=== PATIENT | female | born 1970 | race Caucasian/White ===

== ENCOUNTER 2021-03-03 00:25 | Outpatient (CLI) | payer BC, SELFPAY ==
--- NOTE | 2021-03-03 | DI.CT_ITS ---
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 TECHNIQUE: Imaging Protocol: Axial CT angiography was performed with multi-slice acquisition and mu lti-planar and/or 3D reconstructions. CONTRAST MATERIAL: Intravenous: Omnipaque 350 Contrast volume:structured data in ml COMPARISON: No exams were available for comparison FINDINGS: Nasopharynx: Unremarkable. Oropharynx: Asymmetric left tonsillar region noted. Hypopharynx: Uvula and valleculae appear unremarkable as do the aryepiglottic folds. No evidence of r etropharyngeal abscess. Larynx: Vocal cords appear unremarkable. Subglottic airway appears unremarkable. Thyroid gland: Normal size. Small cyst or nodule noted in the lateral aspect of the left lobe. Measur es approximately 4x 5 millimeters. Salivary glands: Both parotid glands appear unremarkable. Both submandibular glands appear unremarkab le. Lymph nodes: There are pathologic appearing lymph nodes in left side of the neck. These are internall y hypodense and are both anterior and medial to the ipsilateral left sternocleidomastoid muscle. The largest these measures 2.5 cm AP by 2 cm wide by 0.7 cm craniocaudal. There is no obvious pathologic adenopathy on the opposite-right side of the neck. Visualized lung apices: No nodules Osseous: No osseous lesions. Other: Incidentally noted is a focal area of mucosal thickening in the medial wall of the left maxill radha sinus measuring 8 x 5 millimeters. This is probably a post inflammatory retention cyst or polyp. No associated fluid level. No bone dehiscence. The opposite-right maxillary sinus is clear as are the sphenoid and for Sherman is frontal sinuses and ethmoidal air cells. Mastoid air cells are also aerate d. . IMPRESSION: 1. Multiple abnormal enlarged and internally hypodense left neck lymph nodes, as described above. The se pathologic appearing lymph nodes are most probably related to the asymmetry in left side of the or opharynx-tonsil region. 2. No abnormal adenopathy in the right-side of the neck. 3. Other findings as above. RADIATION DOSE DELIVERED: 368.27mGy.cm Total DLP DATA REPOSITORY: All CT scans at this facility are submitted to the National Radiology Data Registry (NRDR) Dose Index Registry (DIR) with the [employer] ([employer]). RADIATION OPTIMIZATION: All CT scans at this facility use at least one of these dose optimization te chniques: automated exposure control; mA and/or kV adjustment per patient size (includes targeted exa ms where dose is matched to clinical indication); or iterative reconstruction.
[2021-03-03 10:47] LABS: CREATININE 0.7 mg/dL (0.55-1.02)
[2021-03-03] MEDS: Omnipaque 350 MG/ML 100 ML BTL IJ (10:58)
[2021-03-03] MEDS: Normal Saline Flush 10 ML SYR IVP (11:00)
== END 2021-03-03 00:45 ==
PROVIDERS: Visit Provider Preventive Medicine Undersea and Hyperbaric Medicine
DX: C09.9 Malignant neoplasm of tonsil, unspecified (principal); R59.0 Localized enlarged lymph nodes; E04.1 Nontoxic single thyroid nodule; J32.0 Chronic maxillary sinusitis; Z01.812 Encounter for preprocedural laboratory examination
CPT/HCPCS: 70491; 82565; J3490

== ENCOUNTER 2021-04-16 03:40 | Outpatient (RCR) | payer BC, SELFPAY ==
[2021-03-26 12:48] LABS: Abs Immature Grans 0.02 10^3/uL (0.0-0.06); Absolute Basophil Count 0.03 10^3/uL (0.0-0.2); Absolute Monocyte Count 0.28 10^3/uL (0.1-0.8); Absolute Neutrophil Count 3.82 10^3/uL (1.2-6.7); Basophils % 0.6; Eosinophils % 3.9; HCT 39.9 % (36.0-46.0); HGB 12.7 g/dL (11.2-15.7); Immature Grans % 0.4; Lymphocytes % 15.5; MCH 28.3 pg (27.0-33.0); MCHC 31.8 % (32.0-36.0); MCV 88.9 fL (80-95); MPV 10.6 fL (8.0-11.0); Monocytes % 5.4; Neutrophils % 74.2; Nucleated RBC 0 %; Platelet Count 221 10^3/uL (130-400); RBC 4.49 10^6/uL (3.93-5.22); RDW 13.3 % (11.7-14.6); RDW-SD 43.1 fL; WBC 5.15 10^3/uL (4.4-10.8)
[2021-03-26 13:12] LABS: ALT 27 U/L (14-59); AST 13 U/L (15-37); Albumin 4.2 g/dL (3.4-5.0); Alkaline Phosphatase 102 U/L (46-116); Anion Gap 9.7 mmol/L (3-11); BUN 19 mg/dL (7-18); Bilirubin, Total 0.5 mg/dL (0.2-1.0); CO2 30.3 mmol/L (21.0-32.0); CREATININE 0.7 mg/dL (0.55-1.02); Calcium 9.6 mg/dL (8.5-10.1); Chloride 100 mmol/L (98-107); Ferritin 76 ng/mL (8-252); Glucose 100 mg/dL (74-106); Potassium 3.7 mmol/L (3.5-5.1); Sodium 140 mmol/L (136-145); Total Protein 8.4 g/dL (6.4-8.2)
[2021-03-26 13:24] LABS: Iron 89 ug/dL (50-170); Total Iron Binding Capacity 383 ug/dL (250-450); Transferrin Sat 23 % (15-50)
[2021-03-26 22:01] LABS: CEA 2.4 ng/mL (See Note)
[2021-03-30 17:05] LABS: DPYD Phenotype Normal metabolizer
[2021-04-16] MEDS: Heparin 500 UNITS/5 ML SYRINGE (13:59)
[2021-04-16] MEDS: Normal Saline Flush 10 ML SYR IVP (13:59)
[2021-04-16 14:12] LABS: Abs Immature Grans 0.01 10^3/uL (0.0-0.06); Absolute Basophil Count 0.03 10^3/uL (0.0-0.2); Absolute Eosinophil Count 0.29 10^3/uL (0.0-0.7); Absolute Lymphocyte Count 0.96 10^3/uL (1.2-3.4); Absolute Monocyte Count 0.44 10^3/uL (0.1-0.8); Absolute Neutrophil Count 3.46 10^3/uL (1.2-6.7); Basophils % 0.6; Eosinophils % 5.6; HCT 37.2 % (36.0-46.0); HGB 11.9 g/dL (11.2-15.7); Immature Grans % 0.2; Lymphocytes % 18.5; MCH 27.8 pg (27.0-33.0); MCV 86.9 fL (80-95); MPV 9.7 fL (8.0-11.0); Monocytes % 8.5; Neutrophils % 66.6; Nucleated RBC 0 %; Platelet Count 255 10^3/uL (130-400); RBC 4.28 10^6/uL (3.93-5.22); RDW 13.9 % (11.7-14.6); RDW-SD 43.4 fL; WBC 5.19 10^3/uL (4.4-10.8)
[2021-04-16 14:26] LABS: ALT 27 U/L (14-59); AST 16 U/L (15-37); Albumin 3.9 g/dL (3.4-5.0); Alkaline Phosphatase 106 U/L (46-116); Anion Gap 8.2 mmol/L (3-11); BUN 20 mg/dL (7-18); Bilirubin, Total 0.3 mg/dL (0.2-1.0); CO2 27.8 mmol/L (21.0-32.0); CREATININE 0.7 mg/dL (0.55-1.02); Calcium 9.1 mg/dL (8.5-10.1); Chloride 104 mmol/L (98-107); Glucose 107 mg/dL (74-106); Potassium 3.9 mmol/L (3.5-5.1); Sodium 140 mmol/L (136-145)
[2021-04-16 23:06] LABS: CEA 4.9 ng/mL (See Note)
== END 2021-04-19 23:59 | disposition home or self-care (01) ==
LOC: INF 03:40
PROVIDERS: Visit Provider Internal Medicine Hematology & Oncology
DX: C20 Malignant neoplasm of rectum (principal); Z45.2 Encounter for adjustment and management of vascular access device
CPT/HCPCS: 36415; 36591; 80053; 81232; 99195; 82378; 82728; 83540; 83550; 85025

== ENCOUNTER 2021-05-14 03:24 | Outpatient (RCR) | payer BC, SELFPAY ==
[2021-04-30] MEDS: Normal Saline Flush 10 ML SYR IVP (12:31)
[2021-04-30] MEDS: Heparin 500 UNITS/5 ML SYRINGE (12:31)
[2021-04-30 12:35] LABS: Abs Immature Grans 0.01 10^3/uL (0.0-0.06); Absolute Basophil Count 0.04 10^3/uL (0.0-0.2); Absolute Eosinophil Count 0.14 10^3/uL (0.0-0.7); Absolute Lymphocyte Count 1.05 10^3/uL (1.2-3.4); Absolute Monocyte Count 0.57 10^3/uL (0.1-0.8); Absolute Neutrophil Count 3.42 10^3/uL (1.2-6.7); Basophils % 0.8; Eosinophils % 2.7; HCT 36.2 % (36.0-46.0); HGB 11.7 g/dL (11.2-15.7); Immature Grans % 0.2; Lymphocytes % 20.1; MCH 28.1 pg (27.0-33.0); MCHC 32.3 % (32.0-36.0); MCV 86.8 fL (80-95); MPV 9.6 fL (8.0-11.0); Monocytes % 10.9; Neutrophils % 65.3; Nucleated RBC 0 %; Platelet Count 210 10^3/uL (130-400); RBC 4.17 10^6/uL (3.93-5.22); RDW 14.3 % (11.7-14.6); RDW-SD 43.9 fL; WBC 5.23 10^3/uL (4.4-10.8)
[2021-04-30 12:48] LABS: ALT 32 U/L (14-59); AST 17 U/L (15-37); Albumin 3.8 g/dL (3.4-5.0); Alkaline Phosphatase 113 U/L (46-116); Anion Gap 6.3 mmol/L (3-11); BUN 20 mg/dL (7-18); Bilirubin, Total 0.4 mg/dL (0.2-1.0); CO2 28.7 mmol/L (21.0-32.0); CREATININE 0.8 mg/dL (0.55-1.02); Calcium 9.3 mg/dL (8.5-10.1); Chloride 105 mmol/L (98-107); Glucose 124 mg/dL (74-106); Potassium 3.9 mmol/L (3.5-5.1); Sodium 140 mmol/L (136-145); Total Protein 7.8 g/dL (6.4-8.2)
[2021-05-14 14:16] LABS: Abs Immature Grans 0.05 10^3/uL (0.0-0.06); Absolute Basophil Count 0.05 10^3/uL (0.0-0.2); Absolute Eosinophil Count 0.11 10^3/uL (0.0-0.7); Absolute Lymphocyte Count 1.28 10^3/uL (1.2-3.4); Absolute Monocyte Count 0.61 10^3/uL (0.1-0.8); Absolute Neutrophil Count 3.35 10^3/uL (1.2-6.7); Basophils % 0.9; HCT 35.1 % (36.0-46.0); HGB 11.4 g/dL (11.2-15.7); Immature Grans % 0.9; Lymphocytes % 23.5; MCH 28.4 pg (27.0-33.0); MCHC 32.5 % (32.0-36.0); MCV 87.3 fL (80-95); MPV 9.7 fL (8.0-11.0); Monocytes % 11.2; Neutrophils % 61.5; Nucleated RBC 0 %; Platelet Count 178 10^3/uL (130-400); RBC 4.02 10^6/uL (3.93-5.22); RDW-SD 46.5 fL; WBC 5.45 10^3/uL (4.4-10.8)
[2021-05-14] MEDS: Normal Saline Flush 10 ML SYR IVP (14:17)
[2021-05-14] MEDS: Heparin 500 UNITS/5 ML SYRINGE IV (14:17)
[2021-05-14 14:29] LABS: ALT 28 U/L (14-59); AST 16 U/L (15-37); Albumin 3.8 g/dL (3.4-5.0); Alkaline Phosphatase 110 U/L (46-116); Anion Gap 9.8 mmol/L (3-11); BUN 21 mg/dL (7-18); Bilirubin, Total 0.3 mg/dL (0.2-1.0); CO2 26.2 mmol/L (21.0-32.0); CREATININE 0.7 mg/dL (0.55-1.02); Calcium 9.3 mg/dL (8.5-10.1); Chloride 104 mmol/L (98-107); Glucose 133 mg/dL (74-106); Potassium 3.9 mmol/L (3.5-5.1); Sodium 140 mmol/L (136-145); Total Protein 7.6 g/dL (6.4-8.2)
== END 2021-05-17 23:59 | disposition home or self-care (01) ==
LOC: INF 03:24
PROVIDERS: Visit Provider Internal Medicine Hematology & Oncology
DX: Z45.2 Encounter for adjustment and management of vascular access device (principal); C20 Malignant neoplasm of rectum
CPT/HCPCS: 36591; 80053; 85025

== ENCOUNTER 2021-06-06 03:20 | Outpatient (RCR) | payer BC, SELFPAY ==
[2021-06-04] MEDS: Normal Saline Flush 10 ML SYR IVP (07:43)
[2021-06-04 08:04] LABS: Abs Immature Grans 0.02 10^3/uL (0.0-0.06); Absolute Basophil Count 0.02 10^3/uL (0.0-0.2); Absolute Eosinophil Count 0.11 10^3/uL (0.0-0.7); Absolute Lymphocyte Count 0.87 10^3/uL (1.2-3.4); Absolute Monocyte Count 0.55 10^3/uL (0.1-0.8); Absolute Neutrophil Count 1.97 10^3/uL (1.2-6.7); Basophils % 0.6; Eosinophils % 3.1; HGB 12.1 g/dL (11.2-15.7); Immature Grans % 0.6; Lymphocytes % 24.6; MCH 29.2 pg (27.0-33.0); MCHC 32.7 % (32.0-36.0); MCV 89.4 fL (80-95); MPV 10.4 fL (8.0-11.0); Monocytes % 15.5; Neutrophils % 55.6; Nucleated RBC 0 %; Platelet Count 162 10^3/uL (130-400); RBC 4.14 10^6/uL (3.93-5.22); RDW 16.5 % (11.7-14.6); RDW-SD 53.4 fL; WBC 3.54 10^3/uL (4.4-10.8)
[2021-06-04 08:25] LABS: ALT 30 U/L (14-59); AST 16 U/L (15-37); Albumin 3.6 g/dL (3.4-5.0); Alkaline Phosphatase 117 U/L (46-116); Anion Gap 6.8 mmol/L (3-11); BUN 20 mg/dL (7-18); Bilirubin, Total 0.7 mg/dL (0.2-1.0); CO2 29.2 mmol/L (21.0-32.0); CREATININE 0.7 mg/dL (0.55-1.02); Calcium 9.2 mg/dL (8.5-10.1); Chloride 104 mmol/L (98-107); Glucose 113 mg/dL (74-106); Sodium 140 mmol/L (136-145); Total Protein 7.4 g/dL (6.4-8.2)
== END 2021-06-17 23:59 | disposition home or self-care (01) ==
LOC: INF 03:20
PROVIDERS: Visit Provider Internal Medicine Hematology & Oncology
DX: C20 Malignant neoplasm of rectum (principal); Z45.2 Encounter for adjustment and management of vascular access device
CPT/HCPCS: 36591; 80053; 96523; 85025

== ENCOUNTER 2021-07-04 00:33 | Outpatient (RCR) | payer BC, SELFPAY ==
[2021-06-18] MEDS: Normal Saline Flush 10 ML SYR IVP (07:48)
[2021-06-18 07:58] LABS: Abs Immature Grans 0.01 10^3/uL (0.0-0.06); Absolute Basophil Count 0.03 10^3/uL (0.0-0.2); Absolute Eosinophil Count 0.11 10^3/uL (0.0-0.7); Absolute Lymphocyte Count 0.86 10^3/uL (1.2-3.4); Absolute Monocyte Count 0.58 10^3/uL (0.1-0.8); Absolute Neutrophil Count 2.51 10^3/uL (1.2-6.7); Basophils % 0.7; Eosinophils % 2.7; HCT 36.3 % (36.0-46.0); HGB 11.9 g/dL (11.2-15.7); Immature Grans % 0.2; MCH 29.3 pg (27.0-33.0); MCHC 32.8 % (32.0-36.0); MCV 89.4 fL (80-95); MPV 10.5 fL (8.0-11.0); Monocytes % 14.1; Neutrophils % 61.3; Nucleated RBC 0 %; Platelet Count 161 10^3/uL (130-400); RBC 4.06 10^6/uL (3.93-5.22); RDW 16.9 % (11.7-14.6); RDW-SD 55.1 fL
[2021-06-18 08:20] LABS: ALT 31 U/L (14-59); AST 19 U/L (15-37); Albumin 3.7 g/dL (3.4-5.0); Alkaline Phosphatase 120 U/L (46-116); Anion Gap 2.8 mmol/L (3-11); BUN 26 mg/dL (7-18); Bilirubin, Total 0.5 mg/dL (0.2-1.0); CO2 27.2 mmol/L (21.0-32.0); CREATININE 0.7 mg/dL (0.55-1.02); Calcium 9.2 mg/dL (8.5-10.1); Chloride 104 mmol/L (98-107); Glucose 105 mg/dL (74-106); Potassium 3.9 mmol/L (3.5-5.1); Sodium 134 mmol/L (136-145); Total Protein 7.5 g/dL (6.4-8.2)
[2021-06-20 09:45] VITALS: BP 127/79; PULSE 71; RESP 18; TEMP 36.3; O2SAT 98
[2021-07-02] MEDS: Normal Saline Flush 10 ML SYR IVP (07:47)
[2021-07-02 07:53] LABS: Abs Immature Grans 0.02 10^3/uL (0.0-0.06); Absolute Basophil Count 0.04 10^3/uL (0.0-0.2); Absolute Lymphocyte Count 0.78 10^3/uL (1.2-3.4); Absolute Monocyte Count 0.67 10^3/uL (0.1-0.8); Absolute Neutrophil Count 3.14 10^3/uL (1.2-6.7); Basophils % 0.8; Eosinophils % 2.1; HGB 12.1 g/dL (11.2-15.7); Immature Grans % 0.4; Lymphocytes % 16.4; MCH 29.5 pg (27.0-33.0); MCHC 32.7 % (32.0-36.0); MCV 90.2 fL (80-95); MPV 10.5 fL (8.0-11.0); Monocytes % 14.1; Neutrophils % 66.2; Platelet Count 141 10^3/uL (130-400); RDW 16.8 % (11.7-14.6); RDW-SD 55.3 fL; WBC 4.75 10^3/uL (4.4-10.8)
[2021-07-02 08:09] LABS: ALT 37 U/L (14-59); AST 24 U/L (15-37); Albumin 3.6 g/dL (3.4-5.0); Alkaline Phosphatase 122 U/L (46-116); Anion Gap 8.7 mmol/L (3-11); BUN 21 mg/dL (7-18); Bilirubin, Total 0.6 mg/dL (0.2-1.0); CO2 29.3 mmol/L (21.0-32.0); CREATININE 0.7 mg/dL (0.55-1.02); Calcium 8.9 mg/dL (8.5-10.1); Chloride 104 mmol/L (98-107); Glucose 117 mg/dL (74-106); Potassium 3.9 mmol/L (3.5-5.1); Sodium 142 mmol/L (136-145); Total Protein 7.4 g/dL (6.4-8.2)
[2021-07-04 09:18] VITALS: BP 134/82; PULSE 74; RESP 18; TEMP 36.2; O2SAT 98
[2021-07-04] MEDS: Normal Saline Flush 10 ML SYR IVP (09:58)
[2021-07-04] MEDS: Heparin 500 UNITS/5 ML SYRINGE IV (09:58)
== END 2021-07-17 23:59 | disposition home or self-care (01) ==
LOC: INF 00:33
PROVIDERS: Visit Provider Internal Medicine Hematology & Oncology
DX: C20 Malignant neoplasm of rectum (principal); Z45.2 Encounter for adjustment and management of vascular access device
CPT/HCPCS: 36591; 80053; 96523; 85025

== ENCOUNTER 2021-07-25 00:03 | Outpatient (RCR) | payer BC, SELFPAY ==
[2021-07-18 00:13] VITALS: BP 134/82; PULSE 74; RESP 18; TEMP 36.2
[2021-07-23] MEDS: Normal Saline Flush 10 ML SYR IVP (08:30)
[2021-07-23 08:37] LABS: Abs Immature Grans 0.05 10^3/uL (0.0-0.06); Absolute Basophil Count 0.03 10^3/uL (0.0-0.2); Absolute Eosinophil Count 0.14 10^3/uL (0.0-0.7); Absolute Lymphocyte Count 1.09 10^3/uL (1.2-3.4); Absolute Monocyte Count 0.63 10^3/uL (0.1-0.8); Absolute Neutrophil Count 1.92 10^3/uL (1.2-6.7); Basophils % 0.8; Eosinophils % 3.6; HCT 36.5 % (36.0-46.0); HGB 11.8 g/dL (11.2-15.7); Immature Grans % 1.3; Lymphocytes % 28.2; MCHC 32.3 % (32.0-36.0); MCV 93 fL (80-95); Monocytes % 16.3; Neutrophils % 49.8; Platelet Count 171 10^3/uL (130-400); RBC 3.93 10^6/uL (3.93-5.22); RDW 15.8 % (11.7-14.6); RDW-SD 54.1 fL; WBC 3.86 10^3/uL (4.4-10.8)
[2021-07-23 09:43] LABS: ALT 35 U/L (14-59); AST 26 U/L (15-37); Albumin 3.6 g/dL (3.4-5.0); Alkaline Phosphatase 127 U/L (46-116); Anion Gap 7.7 mmol/L (3-11); BUN 18 mg/dL (7-18); Bilirubin, Total 0.6 mg/dL (0.2-1.0); CO2 29.3 mmol/L (21.0-32.0); CREATININE 0.8 mg/dL (0.55-1.02); Calcium 9.1 mg/dL (8.5-10.1); Chloride 104 mmol/L (98-107); Glucose 111 mg/dL (74-106); Potassium 3.9 mmol/L (3.5-5.1); Sodium 141 mmol/L (136-145); Total Protein 7.4 g/dL (6.4-8.2)
[2021-07-23 18:44] LABS: CEA 0.5 ng/mL (See Note)
[2021-07-25 11:07] VITALS: BP 115/74; PULSE 79; RESP 16; TEMP 36.6; O2SAT 99
[2021-07-25] MEDS: Heparin 500 UNITS/5 ML SYRINGE IV (11:15)
[2021-07-25] MEDS: Normal Saline Flush 10 ML SYR IVP (11:15)
== END 2021-08-17 23:59 | disposition home or self-care (01) ==
LOC: INF 00:03
PROVIDERS: Visit Provider Internal Medicine Hematology & Oncology
DX: Z45.2 Encounter for adjustment and management of vascular access device (principal); C20 Malignant neoplasm of rectum
CPT/HCPCS: 36591; 80053; 96523; 82378; 85025

== ENCOUNTER 2021-11-12 01:01 | Outpatient (RCR) | payer BC, SELFPAY ==
[2021-11-12] MEDS: Normal Saline Flush 10 ML SYR IVP (09:22)
[2021-11-12] MEDS: Heparin 500 UNITS/5 ML SYRINGE IV (09:22)
[2021-11-12 19:13] LABS: CEA <0.5 ng/mL (See Note)
== END 2021-11-17 23:59 | disposition home or self-care (01) ==
LOC: INF 01:01
PROVIDERS: Visit Provider Internal Medicine Hematology & Oncology
DX: Z45.2 Encounter for adjustment and management of vascular access device (principal); C20 Malignant neoplasm of rectum
CPT/HCPCS: 36591; 82378

== ENCOUNTER 2022-06-03 20:27 | Outpatient (CLI) | payer BC, SELFPAY ==
[2022-06-03 15:33] LABS: Abs Immature Grans 0.03 10^3/uL (0.0-0.06); Absolute Basophil Count 0.04 10^3/uL (0.0-0.2); Absolute Eosinophil Count 0.13 10^3/uL (0.0-0.7); Absolute Lymphocyte Count 1.45 10^3/uL (1.2-3.4); Basophils % 0.5; Eosinophils % 1.8; HCT 38.7 % (36.0-46.0); HGB 12.8 g/dL (11.2-15.7); Immature Grans % 0.4; Lymphocytes % 19.7; MCH 28.3 pg (27.0-33.0); MCHC 33.1 % (32.0-36.0); MCV 86 fL (80-95); MPV 10.4 fL (8.0-11.0); Monocytes % 5.4; Neutrophils % 72.2; Platelet Count 236 10^3/uL (130-400); RBC 4.52 10^6/uL (3.93-5.22); RDW 13.6 % (11.7-14.6); RDW-SD 42.5 fL; WBC 7.35 10^3/uL (4.4-10.8)
[2022-06-03 15:56] LABS: ALT 41 U/L (14-59); AST 20 U/L (15-37); Albumin 3.9 g/dL (3.4-5.0); Alkaline Phosphatase 138 U/L (46-116); Anion Gap 5.2 mmol/L (3-11); BUN 17 mg/dL (7-18); Bilirubin, Total 0.3 mg/dL (0.2-1.0); CO2 29.8 mmol/L (21.0-32.0); CREATININE 0.8 mg/dL (0.55-1.02); Calcium 9.5 mg/dL (8.5-10.1); Chloride 104 mmol/L (98-107); Glucose 136 mg/dL (74-106); Potassium 3.7 mmol/L (3.5-5.1); Sodium 139 mmol/L (136-145); Total Protein 7.7 g/dL (6.4-8.2)
[2022-06-06 11:12] LABS: CEA 0.7 ng/mL (See Note)
== END 2022-06-03 20:28 | disposition home or self-care (01) ==
LOC: LBO 20:29
PROVIDERS: Visit Provider Internal Medicine Hematology & Oncology
DX: C20 Malignant neoplasm of rectum (principal)
CPT/HCPCS: 36415; 80053; 82378; 85025

== ENCOUNTER 2022-12-07 10:09 | Outpatient (RCR) | payer BC, SELFPAY ==
[2022-12-07 10:33] LABS: Abs Immature Grans 0.04 10^3/uL (0.0-0.06); Absolute Basophil Count 0.05 10^3/uL (0.0-0.2); Absolute Eosinophil Count 0.16 10^3/uL (0.0-0.7); Absolute Lymphocyte Count 1.47 10^3/uL (1.2-3.4); Absolute Monocyte Count 0.39 10^3/uL (0.1-0.8); Absolute Neutrophil Count 4.71 10^3/uL (1.2-6.7); Basophils % 0.7; Eosinophils % 2.3; HCT 41.2 % (36.0-46.0); HGB 13.3 g/dL (11.2-15.7); Immature Grans % 0.6; Lymphocytes % 21.6; MCH 28.3 pg (27.0-33.0); MCHC 32.3 % (32.0-36.0); MCV 88 fL (80-95); MPV 10.6 fL (8.0-11.0); Monocytes % 5.7; Neutrophils % 69.1; Platelet Count 242 10^3/uL (130-400); RDW 12.8 % (11.7-14.6); RDW-SD 41.3 fL; WBC 6.82 10^3/uL (4.4-10.8)
[2022-12-07 10:49] LABS: ALT 58 U/L (14-59); AST 27 U/L (15-37); Alkaline Phosphatase 125 U/L (46-116); Anion Gap 7.1 mmol/L (3-11); BUN 15 mg/dL (7-18); Bilirubin, Total 0.4 mg/dL (0.2-1.0); CO2 29.9 mmol/L (21.0-32.0); CREATININE 0.7 mg/dL (0.55-1.02); Calcium 9.9 mg/dL (8.5-10.1); Chloride 101 mmol/L (98-107); Glucose 129 mg/dL (74-106); Potassium 3.9 mmol/L (3.5-5.1); Sodium 138 mmol/L (136-145); Total Protein 8.2 g/dL (6.4-8.2)
[2022-12-07 19:21] LABS: CEA <0.5 ng/mL (See Note)
== END 2022-12-17 23:59 | disposition home or self-care (01) ==
LOC: INF 10:09
PROVIDERS: Visit Provider Internal Medicine Hematology & Oncology
DX: C20 Malignant neoplasm of rectum (principal)
CPT/HCPCS: 36415; 80053; 82378; 85025

== ENCOUNTER 2023-03-03 02:50 | Outpatient (CLI) | payer BC, SELFPAY ==
[2023-03-03 12:17] LABS: Abs Immature Grans 0.03 10^3/uL (0.0-0.06); Absolute Basophil Count 0.05 10^3/uL (0.0-0.2); Absolute Eosinophil Count 0.19 10^3/uL (0.0-0.7); Absolute Lymphocyte Count 1.73 10^3/uL (1.2-3.4); Absolute Monocyte Count 0.41 10^3/uL (0.1-0.8); Absolute Neutrophil Count 5.09 10^3/uL (1.2-6.7); Basophils % 0.7; Eosinophils % 2.5; HCT 40.6 % (36.0-46.0); HGB 13.1 g/dL (11.2-15.7); Immature Grans % 0.4; Lymphocytes % 23.1; MCHC 32.3 % (32.0-36.0); MCV 87 fL (80-95); MPV 10.3 fL (8.0-11.0); Monocytes % 5.5; Neutrophils % 67.8; Platelet Count 234 10^3/uL (130-400); RBC 4.68 10^6/uL (3.93-5.22); RDW-SD 41.5 fL
[2023-03-03 13:05] LABS: ALT 43 U/L (14-59); AST 21 U/L (15-37); Albumin 4.1 g/dL (3.4-5.0); Alkaline Phosphatase 123 U/L (46-116); Anion Gap 9.8 mmol/L (3-11); BUN 18 mg/dL (7-18); Bilirubin, Total 0.5 mg/dL (0.2-1.0); CO2 28.2 mmol/L (21.0-32.0); CREATININE 0.8 mg/dL (0.55-1.02); Calcium 9.9 mg/dL (8.5-10.1); Chloride 101 mmol/L (98-107); Estimated GFR 88.05 (mL/min/1.73m2); Glucose 118 mg/dL (74-106); Potassium 3.8 mmol/L (3.5-5.1); Sodium 139 mmol/L (136-145); Total Protein 8.3 g/dL (6.4-8.2)
[2023-03-06 10:23] LABS: CEA 0.8 ng/mL (See Note)
== END 2023-03-03 02:51 | disposition home or self-care (01) ==
LOC: LBO 02:50
PROVIDERS: Visit Provider Internal Medicine Hematology & Oncology
DX: C20 Malignant neoplasm of rectum (principal)
CPT/HCPCS: 36415; 80053; 82378; 85025

== ENCOUNTER 2023-12-13 02:30 | Outpatient (CLI) | payer BC, SELFPAY ==
[2023-12-13 09:12] LABS: Abs Immature Grans 0.01 10^3/uL (0.0-0.06); Absolute Basophil Count 0.04 10^3/uL (0.0-0.2); Absolute Eosinophil Count 0.15 10^3/uL (0.0-0.7); Absolute Lymphocyte Count 1.38 10^3/uL (1.2-3.4); Absolute Monocyte Count 0.39 10^3/uL (0.1-0.8); Absolute Neutrophil Count 4.55 10^3/uL (1.2-6.7); Basophils % 0.6 %; Eosinophils % 2.3 %; HCT 39.5 % (36.0-46.0); HGB 12.8 g/dL (11.2-15.7); Immature Grans % 0.2 %; Lymphocytes % 21.2 %; MCH 29.2 pg (27.0-33.0); MCHC 32.4 % (32.0-36.0); MCV 90 fL (80-95); MPV 10.4 fL (8.0-11.0); Neutrophils % 69.7 %; Platelet Count 230 10^3/uL (130-400); RBC 4.39 10^6/uL (3.93-5.22); RDW 12.7 % (11.7-14.6); RDW-SD 41.8 fL; WBC 6.52 10^3/uL (4.4-10.8)
[2023-12-13 09:25] LABS: Hemoglobin A1C 6.5 % (<5.7)
[2023-12-13 09:36] LABS: ALT 43 U/L (14-59); AST 21 U/L (15-37); Albumin 3.8 g/dL (3.4-5.0); Alkaline Phosphatase 120 U/L (46-116); Anion Gap 8.1 mmol/L (3-11); BUN 21 mg/dL (7-18); Bilirubin, Total 0.46 mg/dL (0.2-1.0); CO2 27.9 mmol/L (21.0-32.0); CREATININE 0.8 mg/dL (0.55-1.02); Calcium 9.5 mg/dL (8.5-10.1); Chloride 104 mmol/L (98-107); Estimated GFR 88.05 (mL/min/1.73m2); Glucose 139 mg/dL (74-106); Sodium 140 mmol/L (136-145); Total Protein 7.6 g/dL (6.4-8.2)
[2023-12-13 10:04] LABS: LDL CHOLESTEROL 133 mg/dL (<100); TSH 1.06 uIU/Ml (0.36-3.74); Vitamin D 25 Total 36.2 ng/mL (30-100)
[2023-12-13 18:41] LABS: CEA <0.5 ng/mL (See Note)
== END 2023-12-13 02:31 | disposition home or self-care (01) ==
PROVIDERS: PCP Family Medicine; Visit Provider Nurse Practitioner Family
DX: C20 Malignant neoplasm of rectum (principal); E11.9 Type 2 diabetes mellitus without complications; C18.9 Malignant neoplasm of colon, unspecified; E78.5 Hyperlipidemia, unspecified; E55.9 Vitamin D deficiency, unspecified
CPT/HCPCS: 36415; 80053; 82306; 83721; 82378; 83036; 84443; 85025

== ENCOUNTER 2024-04-11 04:07 | Outpatient (CLI) | payer BC, SELFPAY ==
[2024-04-11 13:08] LABS: Abs Immature Grans 0.02 10^3/uL (0.0-0.06); Absolute Basophil Count 0.06 10^3/uL (0.0-0.2); Absolute Eosinophil Count 0.21 10^3/uL (0.0-0.7); Absolute Lymphocyte Count 1.83 10^3/uL (1.2-3.4); Absolute Monocyte Count 0.35 10^3/uL (0.1-0.8); Absolute Neutrophil Count 4.09 10^3/uL (1.2-6.7); Basophils % 0.9 %; Eosinophils % 3.2 %; HCT 41.4 % (36.0-46.0); HGB 13.1 g/dL (11.2-15.7); Immature Grans % 0.3 %; Lymphocytes % 27.9 %; MCH 28.2 pg (27.0-33.0); MCHC 31.6 % (32.0-36.0); MCV 89 fL (80-95); MPV 10.5 fL (8.0-11.0); Monocytes % 5.3 %; Neutrophils % 62.4 %; Platelet Count 238 10^3/uL (130-400); RBC 4.65 10^6/uL (3.93-5.22); RDW-SD 42.2 fL; WBC 6.56 10^3/uL (4.4-10.8)
[2024-04-11 13:34] LABS: ALT 58 U/L (14-59); AST 26 U/L (15-37); Albumin 4.1 g/dL (3.4-5.0); Alkaline Phosphatase 119 U/L (46-116); Anion Gap 6.3 mmol/L (3-11); BUN 18 mg/dL (7-18); Bilirubin, Total 0.54 mg/dL (0.2-1.0); CO2 29.7 mmol/L (21.0-32.0); CREATININE 0.8 mg/dL (0.55-1.02); Calcium 9.8 mg/dL (8.5-10.1); Chloride 105 mmol/L (98-107); Glucose 117 mg/dL (74-106); Potassium 3.7 mmol/L (3.5-5.1); Sodium 141 mmol/L (136-145)
[2024-04-12 18:12] LABS: CEA <0.5 ng/mL (See Note)
== END 2024-04-11 04:08 | disposition home or self-care (01) ==
PROVIDERS: PCP Family Medicine; Visit Provider Nurse Practitioner Family
DX: C20 Malignant neoplasm of rectum (principal)
CPT/HCPCS: 36415; 80053; 82378; 85025

== ENCOUNTER 2025-02-25 01:25 | Outpatient (CLI) | payer BC, SELFPAY ==
[2025-02-25 18:54] LABS: CEA <0.5 ng/mL (See Note)
== END 2025-02-25 01:26 | disposition home or self-care (01) ==
LOC: LBO 01:25
PROVIDERS: PCP Family Medicine; Visit Provider Internal Medicine Hematology & Oncology
DX: C20 Malignant neoplasm of rectum (principal)
CPT/HCPCS: 36415; 82378